=== PATIENT | female | born 1945 | race African-American/Black ===

== ENCOUNTER 2018-05-09 11:00 | Emergency (ER) | payer OTHER ==
[~2018-05-09] VITALS: Ht 162.6 cm; Wt 79.4 kg
[2018-05-09 11:01] VITALS: Ht 162.6 cm; Wt 79.4 kg
[2018-05-09 12:27] VITALS: BP 134/81
== END 2018-05-09 12:27 | disposition home or self-care (01) ==
LOC: ED 11:00
DX: G89.29 Other chronic pain (principal); M25.552 Pain in left hip; K13.70 Unspecified lesions of oral mucosa; I10 Essential (primary) hypertension; E11.9 Type 2 diabetes mellitus without complications
CPT/HCPCS: J1885; J7512